=== PATIENT | female | born 1975 | race Caucasian/White ===

== ENCOUNTER → 2019-09-19 | Outpatient (CLI) | payer BC | LOC: LAB FS 16:37 | PROVIDERS: ATTEND Family Medicine | DX: M25.50 Pain in unspecified joint (principal) | CPT/HCPCS: 36415; 85652; 86038; 86039; 86141; 86200 ==

== ENCOUNTER → 2019-09-22 | Outpatient (CLI) | payer BC | LOC: LAB FS 19:15 | PROVIDERS: ATTEND Family Medicine | DX: R76.8 Other specified abnormal immunological findings in serum (principal) | CPT/HCPCS: 36415; 86225 ==

== ENCOUNTER → 2020-09-14 | Outpatient (CLI) | payer BC ==
[2020-09-14 15:18] LABS: FREE T4 (FREE THYROXINE) 0.86 NG/DL (0.70-1.48)
== END ==
LOC: LAB FS 13:11
PROVIDERS: ATTEND Family Medicine
DX: R25.1 Tremor, unspecified (principal)
CPT/HCPCS: 36415; 84439; 84443

== ENCOUNTER → 2021-08-20 | Outpatient (CLI) | payer BC ==
[2021-08-20 15:34] LABS: FREE T4 (FREE THYROXINE) 0.91 NG/DL (0.70-1.48)
== END ==
LOC: LAB FS 13:25
PROVIDERS: ATTEND Registered Nurse Emergency
DX: R25.1 Tremor, unspecified (principal)
CPT/HCPCS: 36415; 84439; 84443